=== PATIENT | male | born 1940 | race Caucasian/White ===

== ENCOUNTER 2017-06-25 07:34 | Day surgery (SDC) | payer MEDICARE, OTHER ==
[~2017-06-25] VITALS: Ht 182.9 cm; Wt 108.0 kg
[~2017-06-25 07:34] MED LIST: HYDROCHLOROTHIA25 MG PO; LISINOPRIL20 MG PO; METOPROLOL TAR100 MG PO; ONE DAILY FOR1 EAC1 PO
--- NOTE | 2017-06-25 09:42 | NUR ---
06/25/17 0942 Dana Coffman 0933 PT ARRIVED IN PACU AWAKE ASKING QUESTIONS. ABD SOFT. PASSING FLATUS.
--- NOTE | 2017-06-26 18:42 | OR ---
[facility] [address], [place] [address] Signed DATE OF OPERATION: 06/25/2017 SURGEON: Jaylon Escalante MD PREOPERATIVE DIAGNOSES: 1. Internal hemorrhoids. 2. Diverticulosis. 3. Adenomatous polyp in 2006. 4. Guaiac-positive stool. 5. Chronic constipation. 6. Maternal uncle with colon cancer at age 60. POSTOPERATIVE DIAGNOSES: 1. A 4 mm polyp at 25 cm. 2. Minimal to moderate diverticulosis. 3. Minimal internal hemorrhoids. 4. Long redundant colon. PROCEDURE: Colonoscopy with hot biopsy. ESTIMATED BLOOD LOSS: None. INDICATIONS: David is a 76-year-old gentleman, who underwent an initial colonoscopy in 1997 and was found to have internal hemorrhoids and diverticulosis. In 2006, he had another colonoscopy performed and adenomatous polyp was removed. He was asked to follow up every 5 years. He was having some upper abdominal pain, so an ultrasound was performed and it was fine. However, his stool was guaiac positive. He said he suffers with chronic constipation. He takes just a single dose of MiraLAX every day and of course, a small dose does nothing for his constipation. He is known to have internal hemorrhoids. His maternal uncle also developed colon cancer in his 60s. Given his current findings, he was asked to see me for followup colonoscopy. I met with Brant in the office and I gave him a pamphlet on colonoscopy. We looked at that together along with the risks including, but not limited to, gas bloating, crampy abdominal pain, bleeding, perforation, requiring surgery, and missed diagnosis. We also discussed the need for IV conscious sedation. He had expressed understanding and wished to proceed. PROCEDURE NOTE: Electronically Signed By: JAYLON ESCALANTE MD 06/26/17 1842 PATIENT NAME: DAVID TERAN OPERATIVE REPORT DATE OF : 44 PHYSICIAN: JAYLON ESCALANTE MD REPORT #: [id number] REPORT IS CONFIDENTIAL AND NOT TO BE RELEASED WITHOUT AUTHORIZATION [facility] [address], [place] [address] Signed Brant was taken into our endoscopy suite and placed in the left lateral decubitus position. He was given divided doses of 10 mg of Versed and 150 mcg of fentanyl. A digital rectal exam was performed and this was unremarkable. The adult colonoscope was introduced and advanced under direct visualization of the camera. We found that Brant has a very long redundant colon. It took a while to get through the splenic flexure and even the hepatic flexure. We finally made it down into the cecum itself. His prep was moderate. He had some liquid stool in several areas, most of which we were able to suction out. We also noticed that he appears to have a first-degree AV block and probably a bundle branch block as well. Although these are from his simple chest leads. He might consider a 12-lead EKG with his primary care provider. The scope was then slowly withdrawn and again he has this long redundant colon and we eventually made our way back to 25 cm, where we found a 4 to 5 mm sessile polyp. It was easily removed with a hot biopsy forceps. We also could see that he has left-sided diverticulosis. They were minimal to moderate in size, minimal to moderate in number, and scattered about. The rectum itself was unremarkable. Upon retroflexion of the scope, he just has minimal internal hemorrhoid columns. After this, the gas was suctioned out and the colonoscope removed. Brant tolerated the procedure quite well. RECOMMENDATIONS: Brant will follow up in my office in 7 to 14 days to review his pathology results. It looks like he will be on an every 5 year plan. In addition, he might review a 12-lead EKG in his heart history with his primary care provider. Jaylon Escalante MD ALB/MODL /[id number] cc: Deepak Shelton MD Electronically Signed By: JAYLON ESCALANTE MD 06/26/17 1842 PATIENT NAME: DAVID TERAN OPERATIVE REPORT DATE OF : 44 PHYSICIAN: JAYLON ESCALANTE MD REPORT #: [id number] REPORT IS CONFIDENTIAL AND NOT TO BE RELEASED WITHOUT AUTHORIZATION
== END 2017-06-25 10:07 | disposition home or self-care (01) ==
LOC: OPS 07:34 → DS 07:34 → OPS 09:00 → DS 09:45 → OPS 10:07
PROVIDERS: Colon & Rectal Surgery
PROC: 0DBE8ZX Excision of Large Intestine, Via Natural or Artificial Opening Endoscopic, Diagnostic (ICD-10-PCS; principal; 2017-06-25 09:00)
DX: D12.6 Benign neoplasm of colon, unspecified (principal); K64.8 Other hemorrhoids; K57.30 Diverticulosis of large intestine without perforation or abscess without bleeding; I10 Essential (primary) hypertension; Z80.0 Family history of malignant neoplasm of digestive organs; Z90.49 Acquired absence of other specified parts of digestive tract; Z88.2 Allergy status to sulfonamides; Z88.8 Allergy status to other drugs, medicaments and biological substances; Z98.890 Other specified postprocedural states; Z79.899 Other long term (current) drug therapy
CPT/HCPCS: 88305; 99153; G0500; J2250; J3010